=== PATIENT | female | born 1960 | race Caucasian/White ===

== ENCOUNTER 2019-08-29 00:48 | Emergency (ER) | payer SELFPAY ==
[2019-08-29] MEDS ORDERED: AMLODIPINE BESYLATE 5 MG TABLET PO ONE (01:20)
--- NOTE | 2019-08-29 01:48 | ER Document Report ---
Entered by YU GRANDE SCRIBE 08/29/19 0123 Acting as scribe for:FRANCK PHOENIX DO ED General - General Chief Complaint: High Blood Pressure Stated Complaint: IVC/PSYCH Mode of Arrival: Medic Information source: Patient Notes: This 59 year old female patient brought in by EMS from [facility] presents to the ED today with complaints of high blood pressure. According to ED nurse, staff at [facility] states that the patient's blood pressure was 180/120. Patient is currently IVC'd to [facility] with reports of suicidal ideation and homicidal ideation towards family members. Denies SI or HI at this time. Patient complains of headache and ringing in bilateral ears per ED nurse. Patient has a history of HTN, TBI, and bipolar disorder. - Related Data Allergies/Adverse Reactions: No Known Allergies Allergy (Verified 08/29/19 01:12) Home Medications: AMlodipine. ATivan. Prazosin Past Medical History - General Information source: Patient, [facility] Records - Social History Smoking Status: Current Every Day Smoker Cigarette use (# per day): Yes Chew tobacco use (# tins/day): No Smoking Education Provided: No Frequency of alcohol use: Rare Drug Abuse: None Lives with: Alone Family History: Reviewed & Not Pertinent Patient has suicidal ideation: No Patient has homicidal ideation: No - Past Medical History Cardiac Medical History: Reports: Hx Hypertension Psychiatric Medical History: Reports: Hx Bipolar Disorder Traumatic Medical History: Reports: Hx Traumatic Brain Injury Review of Systems - Review of Systems Constitutional: See HPI, Other - hypertension EENT: See HPI, Other - Ringing in ears Cardiovascular: No symptoms reported Respiratory: No symptoms reported Gastrointestinal: No symptoms reported Genitourinary: No symptoms reported Female Genitourinary: No symptoms reported Musculoskeletal: No symptoms reported Skin: No symptoms reported Hematologic/Lymphatic: No symptoms reported Neurological/Psychological: See HPI, Headaches. denies: Homicidal ideation, Suicidal ideation -: Yes All other systems reviewed and negative Physical Exam - Vital signs Vitals: Resp BP Pulse Ox 29 H 186/96 H 98 08/29/19 00:58 08/29/19 00:58 08/29/19 00:58 - General General appearance: Alert In distress: None - HEENT Head: Normocephalic, Atraumatic Eyes: Normal Pupils: PERRL - Respiratory Respiratory status: No respiratory distress Chest status: Nontender Breath sounds: Normal Chest palpation: Normal - Cardiovascular Rhythm: Regular Heart sounds: Normal auscultation Murmur: No Friction rub: No Gallop: None auscultated - Abdominal Inspection: Normal Distension: No distension Bowel sounds: Normal Tenderness: Nontender - Abdomen soft Organomegaly: No organomegaly - Back Back: Normal, Nontender - Extremities General upper extremity: Normal inspection General lower extremity: Normal inspection. No: Edema - Neurological Neuro grossly intact: Yes Cognition: Normal Orientation: AAOx4 Flom Coma Scale Eye Opening: Spontaneous Flom Coma Scale Verbal: Oriented Diana Coma Scale Motor: Obeys Commands Diana Coma Scale Total: 15 Speech: Normal Motor strength normal: LUE, RUE, LLE, RLE Sensory: Normal - Psychological Associated symptoms: Labile, Tangential speech, Tearful, Other - Poor insight and judgement - Skin Skin Temperature: Warm Skin Moisture: Dry Skin Color: Normal Course - Re-evaluation Re-evalutation: 08/29/19 01:50 MDM 59 year old female on IVC papers from daughter. Upset and crying. She is a difficult and circumfrential historian. 08/29/19 02:07 I have spoken with nurse Rae at [facility]. The provider there feels the pt needs to be at another facility and that she is exhibiting neurotic behavior and her blood pressure was elevated and she would not tell what her allergies are. They could not accept this. We will have out psychiatric team evaluate the pt in the am. 08/29/19 05:29 Pt is medically cleared at this time. We are awaiting input from our psychiatry team. - Vital Signs Vital signs: Temp Pulse Resp BP Pulse Ox 97.9 F 29 H 186/96 H 98 08/29/19 01:12 08/29/19 00:58 08/29/19 00:58 08/29/19 00:58 - Laboratory Result Diagrams: 08/29/19 02:34 08/29/19 02:34 Laboratory results interpreted by me: 08/29/19 08/29/19 02:34 02:34 WBC 12.3 H Chloride 108 H Glucose 114 H - Diagnostic Test Radiology reviewed: Reports reviewed - EKG Interpretation by Me EKG shows normal: Sinus rhythm Rate: Normal Rhythm: NSR - NSR Nl Jackson [address] elevation or depression my interpretation. Discharge - Discharge Clinical Impression: Depressed affect, Involuntary commitment Condition: Stable Disposition: PSYCH HOSP/UNIT I personally performed the services described in the documentation, reviewed and edited the documentation which was dictated to the scribe in my presence, and it accurately records my words and actions.
[2019-08-29 02:54] LABS: ABSOLUTE BASOPHILS # (AUTO) 0.1 10^3/uL (0.0-0.2); ABSOLUTE EOSINOPHILS # (AUTO) 0.1 10^3/uL (0.0-0.6); ABSOLUTE LYMPHOCYTES (AUTO) 3.4 10^3/uL (0.5-4.7); ABSOLUTE MONOCYTES (AUTO) 0.8 10^3/uL (0.1-1.4); BASOPHILS % (AUTO) 0.7 % (0-2); EOSINOPHILS % (AUTO) 0.4 % (0-6); HEMATOCRIT 42.7 % (36.0-47.0); HEMOGLOBIN 14.1 g/dL (12.0-15.5); LYMPHOCYTES % (AUTO) 27.4 % (13-45); MEAN CORPUSCULAR HEMOGLOBIN 29.1 pg (27.0-33.4); MEAN CORPUSCULAR HGB CONC 32.9 g/dL (32.0-36.0); MEAN CORPUSCULAR VOLUME 88 fl (80-97); MONOCYTES % (AUTO) 6.2 % (3-13); PLATELET COUNT 195 10^3/uL (150-450); RED BLOOD COUNT 4.83 10^6/uL (3.72-5.28); RED CELL DISTRIBUTION WIDTH 13.7 % (11.5-14.0); SEGMENTED NEUTROPHILS % (AUTO) 65.3 % (42-78); TOTAL CELLS COUNTED % (AUTO) 100 %; WHITE BLOOD COUNT 12.3 10^3/uL (4.0-10.5)
[2019-08-29 03:06] LABS: ALBUMIN 4.1 g/dL (3.5-5.0); ALKALINE PHOSPHATASE 87 U/L (38-126); ANION GAP 9 (5-19); ASPARTATE AMINO TRANSFERASE 20 U/L (14-36); BILIRUBIN,TOTAL 0.4 mg/dL (0.2-1.3); BLOOD UREA NITROGEN 11 mg/dL (7-20); CALCIUM 9.3 mg/dL (8.4-10.2); CARBON DIOXIDE 23 mmol/L (22-30); CHLORIDE 108 mmol/L (98-107); GLUCOSE 114 mg/dL (75-110); POTASSIUM 4.1 mmol/L (3.6-5.0); TOTAL PROTEIN 6.9 g/dL (6.3-8.2)
[2019-08-29 03:44] LABS: APPEARANCE,URINE SLIGHTLY-CLOUDY; BILIRUBIN,URINE NEGATIVE (NEGATIVE); COLOR,URINE YELLOW; GLUCOSE, URINE NEGATIVE (NEGATIVE); KETONES,URINE NEGATIVE (NEGATIVE); LEUKOCYTE ESTERASE,URINE NEGATIVE (NEGATIVE); NITRITE,URINE NEGATIVE (NEGATIVE); PROTEIN,URINE NEGATIVE (NEGATIVE); UROBILINOGEN,URINE NEGATIVE mg/dL (<2.0)
[2019-08-29 04:22] LABS: URINE AMPHETAMINES SCREEN NEGATIVE; URINE BARBITURATES SCREEN NEGATIVE; URINE BENZODIAZEPINES SCREEN NEGATIVE; URINE COCAINE SCREEN NEGATIVE; URINE METHADONE SCREEN NEGATIVE; URINE PHENCYCLIDINE SCREEN NEGATIVE
[2019-08-29 04:24] LABS: URINE MARIJUANA (THC) SCREEN UNCONFIRMED POSITIVE
--- NOTE | 2019-08-29 10:36 | EKG REPORT ---
SEVERITY:- NORMAL ECG - SINUS RHYTHM : Confirmed by: Arminda Edgar 29-Aug-2019 10:35:10
[2019-08-29 12:11] VITALS: BP 137/71
== END 2019-08-29 12:20 ==
LOC: ER 00:48
DX: Z04.6 Encounter for general psychiatric examination, requested by authority (principal); I10 Essential (primary) hypertension; R45.851 Suicidal ideations; R45.850 Homicidal ideations; R51 Headache; H93.13 Tinnitus, bilateral; F17.210 Nicotine dependence, cigarettes, uncomplicated; Z79.899 Other long term (current) drug therapy
CPT/HCPCS: 36415; 80053; 80307; 81001; 83735; 84443; 85025; 93005; 93010; 99285